=== PATIENT | male | born 1960 | race Caucasian/White ===

== ENCOUNTER 2017-01-10 08:39 | Day surgery (SDC) | payer BC ==
[2017-01-09 18:29] LABS: BASOPHILS # (AUTO) 0.1 K/uL (0.0-0.2); BASOPHILS % (AUTO) 0.8 % (0.0-2.0); EOSINOPHILS # (AUTO) 0.2 K/uL (0.0-0.4); HEMATOCRIT 44.1 % (36-54); HEMOGLOBIN 14.9 g/dL (14.0-18.0); LYMPHOCYTES # (AUTO) 2.3 K/uL (1.0-5.5); LYMPHOCYTES % (AUTO) 29.6 % (20.5-51.5); MEAN CORPUSCULAR HEMOGLOBIN 30 pg (27-31); MEAN CORPUSCULAR HGB CONC 34 % (32-36); MEAN CORPUSCULAR VOLUME 88 fL (79.0-98.0); MONOCYTES # (AUTO) 0.5 K/uL (0.0-1.0); MONOCYTES % (AUTO) 6.5 % (1.7-9.3); NEUTROPHILS # (AUTO) 4.7 K/uL (1.8-7.7); NEUTROPHILS % (AUTO) 60.1 % (40.0-70.0); PLATELET COUNT (AUTO) 273 K/uL (130-430); RED CELL DISTRIBUTION WIDTH 12.1 % (9.0-15.0); WHITE BLOOD COUNT (AUTO) 7.8 K/uL (4.8-10.8)
[2017-01-09 18:41] LABS: BILIRUBIN,URINE NEGATIVE (NEGATIVE); BLOOD, URINE NEGATIVE (NEGATIVE); CLARITY/URINE CLEAR (CLEAR); COLOR,URINE YELLOW (YELLOW); GLUCOSE,URINE NEGATIVE (NEGATIVE); KETONES,URINE NEGATIVE (NEGATIVE); LEUKOCYTE ESTERASE ,URINE NEGATIVE (NEGATIVE); NITRITE, URINE NEGATIVE (NEGATIVE); PH,URINE 7.5 (5.0-8.0); PROTEIN URINE NEGATIVE (NEGATIVE); UROBILINOGEN,URINE 0.2 (0.2-1.0)
[2017-01-09 18:59] LABS: CALCIUM 8.7 mg/dL (8.4-11.0); CREATININE 1.09 mg/dL (0.55-1.30); POTASSIUM 3.8 mmol/L (3.5-5.1)
[~2017-01-10] VITALS: Ht 170.2 cm; Wt 108.9 kg
[~2017-01-10 08:39] MED LIST: CEFAZOLIN SOD 2 GM in D5W 50 ML IV ONE
[2017-01-10] MEDS ORDERED: PROPOFOL 200MG/ 20ML VIAL (DIPRIVAN) IV ONE (10:00)
[2017-01-10] MEDS ORDERED: LR 1,000 ML IV.SOLN IV ONE (10:00)
[2017-01-10] MEDS ORDERED: LIDOCAINE MPF 0.5% 250 MG/50 ML VIAL INJ ONE (10:00)
[2017-01-10] MEDS ORDERED: MIDAZOLAM HCL 5 MG/5 ML VIAL IVP ONE (10:00)
[2017-01-10 12:04] VITALS: BP_SYST 124
== END 2017-01-10 12:40 | disposition home or self-care (01) ==
LOC: SDS 08:39 → SMU 08:39 → SDS 12:40
PROVIDERS: ATTEND Orthopaedic Surgery Sports Medicine
DX: G56.02 Carpal tunnel syndrome, left upper limb (principal); E66.01 Morbid (severe) obesity due to excess calories; Z68.37 Body mass index [BMI] 37.0-37.9, adult; M54.12 Radiculopathy, cervical region; E78.5 Hyperlipidemia, unspecified; M51.16 Intervertebral disc disorders with radiculopathy, lumbar region; G57.93 Unspecified mononeuropathy of bilateral lower limbs; N50.819 Testicular pain, unspecified; K21.9 Gastro-esophageal reflux disease without esophagitis; R00.1 Bradycardia, unspecified
CPT/HCPCS: 36415; 64721; 80048; 81003; 85025; J0690; J2001; J2250; J2704; J7060; J7120

== ENCOUNTER 2017-01-26 19:56 | Emergency (ER) | payer BC ==
[~2017-01-26] VITALS: Ht 170.2 cm; Wt 108.9 kg
[2017-01-26 20:09] VITALS: BP_SYST 129
[2017-01-26 22:10] VITALS: BP_SYST 121
== END 2017-01-26 22:10 | disposition home or self-care (01) ==
LOC: SED 19:56
DX: T81.31XD Disruption of external operation (surgical) wound, not elsewhere classified, subsequent encounter (principal)
CPT/HCPCS: 99283